=== PATIENT | male | born 1970 | race Hispanic/Latino ===

== ENCOUNTER 2022-05-29 07:25 | Outpatient (CLI) | payer BC | END 2022-05-29 07:26 | disposition home or self-care (01) | LOC: CSHULT 07:25 | PROVIDERS: ATTEND Internal Medicine Gastroenterology | DX: R79.89 Other specified abnormal findings of blood chemistry (principal); Z86.010 Personal history of colon polyps; K76.89 Other specified diseases of liver | CPT/HCPCS: 76705 ==

== ENCOUNTER 2024-12-05 07:37 | Outpatient (CLI) | payer BC | END 2024-12-05 07:38 | disposition home or self-care (01) | LOC: CSHULT 07:37 | PROVIDERS: ATTEND Family Medicine | DX: K76.89 Other specified diseases of liver (principal) | CPT/HCPCS: 76705 ==